=== PATIENT | female | born 1990 | race Caucasian/White ===

== ENCOUNTER 2018-02-20 20:22 | Observation (INO) ==
[2018-02-21] MEDS ORDERED: Naloxone 0.4 MG/ML INJ IVP PRN ×2 (00:32→22:33)
--- NOTE | 2018-02-21 00:32 | Internal Med History&Physical ---
Date of Encounter: 02/21/18 Time of Encounter: 00:10 Internal Medicine - H&P: HPI Chief complaint: Right obstructing ureteral stone Admitted From: Hospital to Hospital Transfer Plans for Post Hospital Care: Home History of present illness: Ms. Wolff is a 27 year old female Patient states that she was sitting on the couch at home yesterday when she began feeling a dull pain on her right side that slowly progressed in intensity. She had associated nausea and feeling warm as well. The afternoon prior to her admission she states the pain returned, then increased in intensity , had nausea and vomiting, but the pain continued and did not reduce. She had never had pain like this before. She came to the [place] ER for further evaluation. In the ER CT abdomen and pelvis showed moderate right hydronephrosis secondary to a 5 mm mid right ureteral stone. Her remaining labs were unremarkable. UA did not show infection. She has no previous history of kidney stones. Urology was called from the ER, and agreed to see the patient at [place]. She was transferred for further medical management. Upon my assessment patient states that her pain was fairly controlled, but starting to return again. She denied chest pain, nausea, vomiting, diarrhea, constipation, but did have dark urine but no dysuria. She continues to have right flank pain, with no radiation. Past Med Surg Social Fam HX - Past Medical History Medical history: no medical history Psychiatric history: no psych history - Past Surgical History Surgical History: no surgical history Additional surgical history: VAG DELIVERY: 06/26/08, 02/19/13. MISCARRIAGE 2009. REPORTS PREECLAMSIA W/FIRST - Social History Smoking Status: Never smoker Smokeless Tobacco Status: No Alcohol use: none Drug use: none - Family History Mother Family Member Ethnicity: Non- Living Status: Still Living Hx Family Cardiac Disorders: No Hx Family Respiratory Disorders: No Hx Family Cancer: No Hx Family GI Disorders: No Hx Family Endocrine Disorder: No Hx Family Neuromuscular Disorders: No Hx Family Neurologic Disorders: No Hx Family HEENT Disorders: No Hx Family Autoimmune Disorders: No Internal Medicine - H&P: Meds No Known Home Drugs 02/20/18 [History] 3 Allergy/AdvReac Type Severity Reaction Status Date / Time promethazine [From Phenergan] AdvReac Mild Muscle Pain Verified 02/20/18 17:00 All Systems PM: A 10-system review of systems was performed and is negative for pertinent findings except as documented above in the HPI. - Constitutional Vitals: Temp Pulse Resp BP Pulse Ox 98.1 F 75 14 142/87 99 02/20/18 23:48 02/20/18 23:48 02/20/18 23:48 02/20/18 23:48 02/20/18 23:48 General appearance: Present: cooperative, mild distress, A&O X 3, pleasant, answers questions appropriately Exam: As above - Head Head exam: Present: normal inspection - Eye Eye exam: Present: EOMI, normal appearance - Neck Neck exam general surgery: Present: full ROM - Respiratory Respiratory exam: Present: CTAB. Absent: chest wall tenderness, decreased breath sounds, respiratory distress, wheezes - Cardiovascular Cardiovascular exam: Present: RRR. Absent: diastolic murmur, systolic murmur - GI/Abdominal GI/Abdominal exam: Present: normal bowel sounds. Absent: guarding, soft, tenderness - Extremities Exam Extremities exam: Present: warm, radial pulses palpable and symmetrical. Absent : calf tenderness, pedal edema, tenderness - Back Exam Back exam: Present: CVA tenderness (R). Absent: CVA tenderness (L), paraspinal tenderness Additional comments: Right flank pain - Neurological Exam Neurological exam: Present: no focal deficits, strengths equal and symetr throughout. Absent: motor sensory deficit, facial droop, speech deficit - Skin Skin exam: Present: dry, normal color, warm Internal Med - H&P Results - Labs CBC & Chem 7: 02/21/18 04:40 - Assessment and plan (1) Right ureteral stone Current Visit: Yes Status: Acute Assessment and plan: As evidenced by CT abdomen and pelvis. Urology consult in the morning Flomax Pain control with SL oxycodone IV fluids Continue to monitor. (2) Hydronephrosis, right Current Visit: Yes Status: Acute Assessment and plan: Secondary to 5mm stone Treatment as above. (3) Right flank pain Current Visit: Yes Status: Acute Assessment and plan: Secondary to 5mm stone as above SL oxycodone and phenergan as needed. (4) Hematuria Current Visit: Yes Status: Acute Assessment and plan: Likely secondary to ureteral stone as above Follow up repeat UA to ensure resolution Qualifiers: Qualified Code(s): R31.9 - Hematuria, unspecified (5) DVT prophylaxis Current Visit: Yes Status: Acute Assessment and plan: SCDs - Time Spent With Patient Total time spent is greater than 50% in coordination of care (as documented) at patient's floor/unit and/or counseling patient: Greater than 35 minutes
[2018-02-21] MEDS: OXYCODONE Oral CONC 10 MG/0.5 ML ORAL.SYG SL PRN ×2 (00:51→05:09)
[2018-02-21] MEDS: 0.9 % Sodium Chloride 1,000 ML IVC SCH ×2 (00:59→08:43)
[2018-02-21 05:20] LABS: Hematocrit 43.7 % (35.3-44.9); Hemoglobin 14.2 g/dL (11.5-15.4); Mean Corpuscular HGB Conc 32.5 g/dL (31.6-35.5); Mean Corpuscular Hemoglobin 30.1 pg (28.0-33.3); Mean Corpuscular Volume 92.8 fL (83.0-100.0); Mean Platelet Volume 12.2 fL (9.4-12.4); Platelet Count 264 K/mcL (140-400); Red Blood Count 4.71 M/mcL (3.82-4.97); Red Cell Distribution Width 13.2 % (11.5-14.5)
[2018-02-21 05:41] LABS: BUN/Creatinine Ratio 15 (6-26); Blood Urea Nitrogen 9 mg/dL (6-20); Calcium 8.6 mg/dL (8.6-10.3); Carbon Dioxide 19 mEq/L (23-29); Chloride 107 mEq/L (98-107); Glucose 95 mg/dL (70-105); Osmolality,Calculated 282 (280-300); Potassium 3.5 mEq/L (3.5-5.1); Sodium 137 mEq/L (136-145); eGFR For Non-African Americans > 60 (> 60)
[2018-02-21] MEDS ORDERED: *HR* OxyCODONE Immed Rel 5 MG TABLET PO PRN ×2 (07:11→20:54)
[2018-02-21] MEDS: Ketorolac 30 MG/ML VIAL IVP PRN ×2 (08:44→15:33)
--- NOTE | 2018-02-21 09:31 | Urology - Consult Note ---
Date of Encounter: 02/21/18 Time of Encounter: 09:15 - Assessment and Plan (1) Right ureteral stone Current Visit: Yes Status: Acute Assessment and plan: Patient is a 27 year old female who presents with a right 5mm mid ureteral stone with moderate right hydronephrosis. Pain control has been difficult to achieve, but patient is currently resting comfortably in no apparent distress. Reviewed CT findings with patient. Discussed surgical risks and benefits. Patient verbalizes understanding and is prepared to undergo a right ureteroscopic stone extraction with holmium laser lithotripsy and ureteral stent placement. Urology CN:HPI Consult date: 02/21/18 Reason for consult Urology: Hydronephrosis (mid right ureteral stone) History of present illness: Patient is a 27 year old female who presents to the emergency department with right flank pain and hematuria. Patient states pain began two days ago and was colicky and intermittent. Patient states in last 24 hours, pain acutely worsened and was accompanied with chills, nausea and diaphoresis. Patient has no known history of renal stones. Patient denies family history of renal stones. Patient has undergone CT scan abdomen and pelvis. Past Med Surg Social Fam HX - Past Medical History Medical history: no medical history Psychiatric history: no psych history - Past Surgical History Surgical History: no surgical history Additional surgical history: VAG DELIVERY: 06/26/08, 02/19/13. MISCARRIAGE 2009. REPORTS PREECLAMSIA W/FIRST - Social History Smoking Status: Never smoker Smokeless Tobacco Status: No Alcohol use: none Drug use: none - Family History Mother Family Member Ethnicity: Non- Living Status: Still Living Hx Family Cardiac Disorders: No Hx Family Respiratory Disorders: No Hx Family Cancer: No Hx Family GI Disorders: No Hx Family Endocrine Disorder: No Hx Family Neuromuscular Disorders: No Hx Family Neurologic Disorders: No Hx Family HEENT Disorders: No Hx Family Autoimmune Disorders: No Medications and Allergies 3 Allergy/AdvReac Type Severity Reaction Status Date / Time promethazine [From Phenergan] AdvReac Mild Muscle Pain Verified 02/20/18 17:00 Review of Systems - Constitutional chills, fatigue, no fever(s) - EENT Nose, mouth and throat: no dizziness, no headache(s) - Cardiovascular diaphoresis, no chest pain, no dyspnea - Respiratory no cough, no dyspnea - Gastrointestinal abdominal pain, nausea, no vomiting - Genitourinary Genitourinary: hematuria, no difficulty urinating, no dysuria, no urinary frequency, no urinary hesitancy, no urinary urgency - Musculoskeletal back pain, no muscle weakness - Integumentary no erythema, no rash, no swelling - Neurological no confusion, no syncope - Psychiatric no anxiety, no confusion Exam Initial Vital Signs Temp Pulse Resp BP Pulse Ox 98.1 F 75 14 142/87 99 02/20/18 23:48 02/20/18 23:48 02/20/18 23:48 02/20/18 23:48 02/20/18 23:48 - General physical appearance Present: well developed, well nourished, no distress, moderate pain - Eyes Present: PERRL, normal ocular movement - ENT Present: normal nares, no hearing loss, no congestion - Neck Present: no masses, trachea midline - Respiratory Present: normal respiratory effort - Cardiovascular Cardiovascular exam IM: RRR - Abdomen Abdomen: Present: soft, tender (right CVAT) - Integumentary Present: no rash, no growths, no abnormal pigmentation - Neurologic Present: normal coordination Urology Results - Labs 02/21/18 04:40 02/21/18 04:40 Abnormal lab results WBC 14.6 K/mcL (4.3-11.1) H 02/21/18 04:40 Carbon Dioxide 19 mEq/L (23-29) L 02/21/18 04:40 POC Glucose 106 mg/dL (70-99) H 02/21/18 05:54 Diabetes panel 02/21/18 Range/Units 04:40 Sodium 137 (136-145) mEq/L Potassium 3.5 (3.5-5.1) mEq/L Chloride 107 (98-107) mEq/L Carbon Dioxide 19 L (23-29) mEq/L BUN 9 (6-20) mg/dL Creatinine 0.61 (0.60-1.20) mg/dL Glucose 95 (70-105) mg/dL Calcium 8.6 (8.6-10.3) mg/dL Calcium panel 02/21/18 Range/Units 04:40 Calcium 8.6 (8.6-10.3) mg/dL Pituitary panel 02/21/18 Range/Units 04:40 Sodium 137 (136-145) mEq/L Potassium 3.5 (3.5-5.1) mEq/L Chloride 107 (98-107) mEq/L Carbon Dioxide 19 L (23-29) mEq/L BUN 9 (6-20) mg/dL Creatinine 0.61 (0.60-1.20) mg/dL Glucose 95 (70-105) mg/dL Calcium 8.6 (8.6-10.3) mg/dL Adrenal panel 02/21/18 Range/Units 04:40 Sodium 137 (136-145) mEq/L Potassium 3.5 (3.5-5.1) mEq/L Chloride 107 (98-107) mEq/L Carbon Dioxide 19 L (23-29) mEq/L BUN 9 (6-20) mg/dL Creatinine 0.61 (0.60-1.20) mg/dL Glucose 95 (70-105) mg/dL Calcium 8.6 (8.6-10.3) mg/dL All other labs normal. - Imaging CT scan - abdomen: report reviewed, image reviewed CT scan - pelvis: report reviewed, image reviewed Consult Discharge Plan - Plan Referrals: Luz Pan, SURGICAL ASST [Primary Care Provider] -
[2018-02-21] MEDS ORDERED: CeFAZolin Syr 2,000MG/20 ML 2,000 MG/20 ML SYRINGE IVPB ONE ×2 (09:39→17:00)
--- NOTE | 2018-02-21 12:00 | Event Note ---
Date of Encounter: 02/21/18 Time of Encounter: 10:10 27-year-old female is admitted for right ureteral stone associated with ipsilateral hydronephrosis. IVF, analgesics. Plan for OR later today for ureteroscopy, laser lithotripsy, and stent placement. Potential discharge in AM after procedure.
[2018-02-21] MEDS: Ringers Solution, Lactated 1,000 ML IVC SCH (17:52)
--- NOTE | 2018-02-21 19:31 | Anesthesia Evaluation PreOp ---
Date of Encounter: 02/21/18 Time of Encounter: 19:29 - Past History Planned Operation: Right ureteroscopy, laser lithotripsy, stent Cardiac History: Denies any Significant Hx Pulmonary History: Denies Any Significant HX [facility] History: Denies Any Significant HX Other Medical History: Renal (stone) Anesthesia History: No Prior Anesthetic Complications, Past Anesthesia (wisdom tooth extraction) Test: Negative (02/20/18) Alcohol Use: none Drug use: none Medications and Allergies l-Norgest/E.estradiol-E.estrad [Seasonique 0.15-0.03-0.01 Tab] 1 tab PO DAILY [History] 3 Allergy/AdvReac Type Severity Reaction Status Date / Time promethazine [From Phenergan] AdvReac Mild Muscle Pain Verified 02/20/18 17:00 - Meds/Allergy Pre-op Review Medications Reviewed: Yes Allergies Reviewed: Yes Beta Blockers on Current Med List: No Anesthesia Results - Labs 02/21/18 04:40 02/21/18 04:40 Laboratory Tests 02/20/18 17:15 Serum , Qual Negative Anesthesia Exam Vital Signs/O2 Sat, Most Current Temp Pulse Resp BP Pulse Ox 98.1 F 83 14 137/80 100 02/21/18 19:15 02/21/18 19:15 02/21/18 19:15 02/21/18 19:15 02/21/18 19:15 Weight: 64kg NPO (# of Hours): >8 - HEENT Pupil (Motor): Pupils equal, EOMI Mallampati: II Teeth: Normal Oral Opening: Greater than 3 - [facility] LOC: Oriented [facility] Motor: Normal RUE, Normal LUE, Normal RLE, Normal LLE, Normal Face [facility] Sensory: Normal: RUE, LUE, RLE, LLE, Face - Cardiac Rhythm: Regular - Pulmonary Breath Sounds: bilateral Clear Respiratory Effort: Symmetrical Anesthesia Assess/Plan ASA Score: 1 Modified [place] Scale for Level of Consciousness: Cooperative, oriented, and tranquil Anesthetic Plan: General Monitoring Plan: Standard Monitors Recovery Plan: PACU
[2018-02-21] MEDS ORDERED: Lidocaine -MPF 2% 2 ML VIAL ONE (19:37)
[2018-02-21] MEDS ORDERED: *HR* Propofol 200 MG/20 ML VIAL IVP ONE (19:37)
[2018-02-21] MEDS ORDERED: *HR* FentaNYL (PF) 100 MCG/2 ML VIAL ONE (20:43)
[2018-02-21] MEDS ORDERED: *HR* FentaNYL (PF) 100 MCG/2 ML VIAL IVP PRN (20:54)
[2018-02-21] MEDS ORDERED: *HR* Meperidine 25 MG/ML SYRINGE IVP PRN (20:54)
[2018-02-21] MEDS ORDERED: Ondansetron 4 MG/2 ML VIAL IVP ONE (20:54)
[2018-02-21] MEDS ORDERED: Ringers Solution, Lactated 1,000 ML IVC SCH ×2 (21:00→22:33)
[2018-02-21] MEDS ORDERED: Ondansetron 4 MG/2 ML VIAL ONE (21:17)
[2018-02-21] MEDS ORDERED: Dexamethasone 4 MG/ML VIAL ONE (21:17)
--- NOTE | 2018-02-21 21:42 | Operative Note ---
Date of procedure: 02/21/18 Pre-op diagnosis: Right ureteral stone Post-op diagnosis: same Procedure: Right ureteroscopy, laser lithotripsy, basket stone extraction, and stent placement. Implants: 6-Ghanaian by 24 cm double-J stent Complications: None Anesthesia: NILESHA Surgeon: Johnathan Brice Was there an clerical administrative assistant present: No Estimated blood loss (cc): 0 Specimen: none Condition: stable Disposition: PACU Procedure in Detail: Indications: Soledad is a 27-year-old female who presents with right flank pain. A CT scan showed a distal right ureteral stone. She failed outpatient managementand elected to have the stone removed. She elected to undergo a right ureteroscopy, laser lithotripsy, and stent placement. She was aware of the risks of the procedure including but not limited to bleeding, infection, injury to other structures, need for further procedures, need for stent, stent irritation, incomplete treatment, and the risk of anesthesia. She is willing to proceed. Procedure: After informed consent was obtained the patient was brought back to the operating room and placed in supine position. A time out was performed. General anesthesia was administered and an LMA was placed. She was then placed in the lithotomy position. She was prepped and draped in the usual sterile fashion. Cystoscopy was performed. The anterior urethra was normal. There was no evidence of bladder tumors. The ureteral orifices were in the normal orthotopic position. There was no duplication of the ureteral orifices. The Zip wire was placed in the right ureteral orifice, and it was brought into the kidney under fluoroscopic guidance. The ureter was gently dilated with the 8/10-Ghanaian vessel dilator. I then advanced the semirigid ureteroscope into the ureter. I grasped the stone with the basket and attempted to remove it, but it did not pass. The stone was fragmented using the 200 micron fiber. The stone fragments were then basket extracted. A 6 [place] by 24cm JJ stent was then placed with good curl seen in the kidney and the bladder. The dangle string was left intact and tucked into the vagina for removal at a later date. The patient was then awakened from general anesthesia and brought to recovery room in good condition. All sponge, needle, and instrument counts were correct
--- NOTE | 2018-02-21 22:18 | Anesthesia Evaluation Post Op ---
Date of Encounter: 02/21/18 Time of Encounter: 22:16 - Vital Signs Vital Signs: Vital Signs/O2 Sat, Most Current Temp Pulse Resp BP Pulse Ox 97.9 F 74 16 112/62 99 02/21/18 21:45 02/21/18 22:05 02/21/18 22:05 02/21/18 22:05 02/21/18 22:05 - Lungs Lungs: Clear Ascult./Percussion - Airway Airway: Non-obstructed - Cardiovascular Regular Rate - Mental Status Mental Status: Alert & Oriented, Answers Appropriately - Pain Pain Scale: 0 Pain Scale used: Numeric (1 - 10) - Nausea Vomiting Nausea Vomiting: Not Present - Hydration Hydration: NPO - Discharge PostOp Status: Transfer Patient to floor
[2018-02-21] MEDS ORDERED: OXYCODONE Oral CONC 10 MG/0.5 ML ORAL.SYG SL PRN (22:33)
[2018-02-21] MEDS ORDERED: *HR* OxyCODONE/APAP 5/325 TABLET PO PRN (22:33)
[2018-02-22] MEDS: Ringers Solution, Lactated 1,000 ML IVC SCH (00:21)
[2018-02-22] MEDS: Ketorolac 30 MG/ML VIAL IVP PRN ×2 (01:03→06:45)
[2018-02-22 05:25] LABS: Basophils % 0.1 %; Hematocrit 39.3 % (35.3-44.9); Hemoglobin 13.3 g/dL (11.5-15.4); Immature Granulocytes % 0.5 % (0-4); Lymphocytes # 1.1 K/mcL (0.6-4.6); Lymphocytes % 12.8 %; Mean Corpuscular HGB Conc 33.8 g/dL (31.6-35.5); Mean Corpuscular Hemoglobin 30.7 pg (28.0-33.3); Mean Corpuscular Volume 90.8 fL (83.0-100.0); Mean Platelet Volume 12.1 fL (9.4-12.4); Monocytes # 0.2 K/mcL (0.0-1.3); Monocytes % 1.9 %; Platelet Count 260 K/mcL (140-400); Red Blood Count 4.33 M/mcL (3.82-4.97); Red Cell Distribution Width 13.1 % (11.5-14.5); Segmented Neutrophils % 84.7 %
[2018-02-22 05:44] LABS: BUN/Creatinine Ratio 11 (6-26); Blood Urea Nitrogen 7 mg/dL (6-20); Calcium 8.8 mg/dL (8.6-10.3); Carbon Dioxide 18 mEq/L (23-29); Chloride 109 mEq/L (98-107); Glucose 128 mg/dL (70-105); Osmolality,Calculated 282 (280-300); Potassium 3.8 mEq/L (3.5-5.1); Sodium 136 mEq/L (136-145); eGFR For Non-African Americans > 60 (> 60)
--- NOTE | 2018-02-22 09:15 | Urology Progress Note ---
Date of Encounter: 02/22/18 Time of Encounter: 09:12 - Assessment and Plan (1) Right ureteral stone Current Visit: Yes Status: Acute Assessment and plan: Patient is a 27 year old female who is 1 day status post right ureteroscopy, laser lithotripsy, basket stone extraction, and stent placement. Patient's vital signs are stable and afebrile. Discussed home activities and follow up. Patient will self remove stent 5 days postoperative. Progress Note Subjective: no new complaints, feels better Narrative: POD #1. Patient seen and examined sitting upright in bed eating breakfast. Patient tolerating normal diet. Voiding without difficulty. Pain is well controlled. No new concerns. Objective Initial Vital Signs Temp Pulse Resp BP Pulse Ox 98.1 F 75 14 142/87 99 02/20/18 23:48 02/20/18 23:48 02/20/18 23:48 02/20/18 23:48 02/20/18 23:48 - General physical appearance Present: well developed, no distress, no pain - Respiratory Present: normal expansion, normal respiratory effort - Abdomen Present: soft, non tender - Integumentary Present: no rash, no abnormal pigmentation - Musculoskeletal Present: normal posture - Psychiatric Present: oriented to time, oriented to person, oriented to place, speech is normal, memory intact - Labs 02/22/18 04:52 02/22/18 04:52 Diabetes panel 02/22/18 Range/Units 04:52 Sodium 136 (136-145) mEq/L Potassium 3.8 (3.5-5.1) mEq/L Chloride 109 H (98-107) mEq/L Carbon Dioxide 18 L (23-29) mEq/L BUN 7 (6-20) mg/dL Creatinine 0.66 (0.60-1.20) mg/dL Glucose 128 H (70-105) mg/dL Calcium 8.8 (8.6-10.3) mg/dL Calcium panel 02/22/18 Range/Units 04:52 Calcium 8.8 (8.6-10.3) mg/dL Pituitary panel 02/22/18 Range/Units 04:52 Sodium 136 (136-145) mEq/L Potassium 3.8 (3.5-5.1) mEq/L Chloride 109 H (98-107) mEq/L Carbon Dioxide 18 L (23-29) mEq/L BUN 7 (6-20) mg/dL Creatinine 0.66 (0.60-1.20) mg/dL Glucose 128 H (70-105) mg/dL Calcium 8.8 (8.6-10.3) mg/dL Adrenal panel 02/22/18 Range/Units 04:52 Sodium 136 (136-145) mEq/L Potassium 3.8 (3.5-5.1) mEq/L Chloride 109 H (98-107) mEq/L Carbon Dioxide 18 L (23-29) mEq/L BUN 7 (6-20) mg/dL Creatinine 0.66 (0.60-1.20) mg/dL Glucose 128 H (70-105) mg/dL Calcium 8.8 (8.6-10.3) mg/dL Consult Discharge Plan - Plan Referrals: Luz Pan CNP [Primary Care Provider] - Johnathan Brice MD [Partnered Physician] -
--- NOTE | 2018-02-22 10:00 | Discharge Summary ---
- NOTES TO OUTPATIENT PROVIDER Notes to Outpatient Provider: Patient was admitted for right ureteric stone complicated by hydronephrosis. Underwent laser lithotripsy, stone extraction, and stent placement on 02/21 uneventfully. No evidence of UTI. Stent to be removed on POD#5 and follow up with urology as outpatient. Orders not resulted at time of discharge: Pending orders 02/21/18 21:10 XR KUB [XR] Routine Date of Encounter: 02/22/18 Time of Encounter: 08:30 - Discharge Diagnosis (1) Hydronephrosis, right Priority: Secondary Status: Acute (2) Right ureteral stone Priority: Primary Status: Acute Hospital course: Ms. Wolff is a 27 year old female with no significant past medical history was admitted for right ureteric stone complicated by hydronephrosis. Underwent laser lithotripsy, stone extraction, and stent placement on 02/21 uneventfully. No evidence of UTI. Stent to be removed on POD#5 and follow up with urology as outpatient. Discharge discussed with: patient - Time Spent with Patient Total time spent providing and/or coordinating discharge services: Greater than 30 minutes - Discharge Medications Prescriptions: Acetaminophen w/Cod 300-30 mg [Tylenol w/Codeine #3] 1 each PO Q8HR 4 Days #12 tablet Home Medications: l-Norgest/E.estradiol-E.estrad [Seasonique 0.15-0.03-0.01 Tab] 1 tab PO DAILY [History] Acetaminophen w/Cod 300-30 mg [Tylenol w/Codeine #3] 1 each PO Q8HR 4 Days #12 tablet 02/22/18 [Rx] Allergies/Adverse Reactions: 3 Allergy/AdvReac Type Severity Reaction Status Date / Time promethazine [From Phenergan] AdvReac Mild Muscle Pain Verified 02/20/18 17:00 Date of admission: 02/20/18 22:22 Primary care physician: Luz Pan CNP - Constitutional Vitals: Temp Pulse Resp BP Pulse Ox 98.7 F 57 16 127/73 99 02/22/18 07:21 02/22/18 07:21 02/22/18 07:21 02/22/18 07:21 02/22/18 07:21 General appearance: Present: cooperative, mild distress, A&O X 3, pleasant, answers questions appropriately Exam: General: Alert and oriented, not in acute distress. Cardiovascular:Normal S1 & S2, No JVD. Pulse regular. Lungs: clear to auscultation, no wheezes/rales Abdomen:Soft, non-tender, no rigidity. : Minimal R CVA tenderness Neurological:Normal cognition and motor skills. Non-focal - Patient Status Disposition: Home, Self-Care Condition: Good Functional capacity at discharge: independent ambulation Overall status at discharge: patient is progressing back to baseline - Discharge Instructions Follow Up With: Luz Pan CNP [Primary Care Provider] - Johnathan Brice MD [Partnered Physician] - - Diet and Activity Activity: resume usual activities as tolerated Diet: regular diet
[2018-02-22 10:53] VITALS: BP 144/72
== END 2018-02-22 12:43 | disposition home or self-care (01) ==
LOC: 3ANU → SUATTDRO 22:22
PROVIDERS: ADMIT Family Medicine; ATTEND Internal Medicine

== ENCOUNTER 2018-02-25 20:52 | Observation (INO) ==
[2018-02-26] MEDS ORDERED: *HR* HYDROcodone/Acet 10/325 mg TABLET PO PRN (03:08)
[2018-02-26] MEDS ORDERED: Ringers Solution, Lactated 1,000 ML IVC SCH (03:15)
[2018-02-26] MEDS ORDERED: Methocarbamol 500 MG TABLET PO STA (03:15)
--- NOTE | 2018-02-26 03:18 | Internal Med History&Physical ---
Date of Encounter: 02/26/18 Time of Encounter: 03:15 Internal Medicine - H&P: HPI Chief complaint: Right flank pain Admitted From: Home Plans for Post Hospital Care: Home History of present illness: Soledad Wolff is a 27 year old woman with no prior medical history who was admitted here on 02/21 with the complaint of right flank pain of acute onset accompanied by nausea and vomiting, diagnosed with a 5mm right ureteral stone with concomitant moderate hydronephrosis. She underwent right ureteroscopy, laser lithotripsy, basket stone extraction, and stent placement the same day with a dangle string left and tucked into the vagina for removal at a later date. She was discharged on 02/22 with the recommendation to remove the stent on POD#5. She presents again on transfer from [place] stating that she took the stent out today at 10am and around 2.30pm started having right flank pain again accompanied by nausea and vomiting. The pain progressed and she continued to feel miserable also feeling episodes of hot and cold with chills, feeling significantly uncomfortable. She did not notice any blood in his urine since removal of the stents. In the ER she was afebrile but tachycardic to the 120s and hypertensive. Another CT scan was done which showed a decrease in the degree of hydroureteronephrosis in comparison to previous and no free air in the peritoneum. UA obtained showed large blood but negative nitrite and trace leukocyte esterase but only 3-5 white cells. Given the severity of her pain and symptoms she was given ketorolac with the new finding of a white blood cell count of 16 was started on ceftriaxone and transferred here for further evaluation. On my assessment she states that the pain has been exquisite and ongoing ever since 2 PM and not responsive to Tylenol with codeine or oxycodone. She says the pain is even more than her initial presentation a few days ago with the first kidney stone and she is unable to obtain a comfortable position. She has had some chills but says ever since receiving pain medication and it has improved. She denies noticing blood in her urine ever since the stent removal and has no dysuria. Past Med Surg Social Fam HX - Past Medical History Medical history: kidney stones Psychiatric history: no psych history - Past Surgical History Surgical History: no surgical history Additional surgical history: VAG DELIVERY: 06/26/08, 02/19/13. MISCARRIAGE 2010. REPORTS PREECLAMSIA W/FIRST - Social History Smoking Status: Never smoker Smokeless Tobacco Status: No Alcohol use: none Drug use: none - Family History Mother Family Member Ethnicity: Non- Living Status: Still Living Hx Family Cardiac Disorders: No Hx Family Respiratory Disorders: No Hx Family Cancer: No Hx Family GI Disorders: No Hx Family Endocrine Disorder: No Hx Family Neuromuscular Disorders: No Hx Family Neurologic Disorders: No Hx Family HEENT Disorders: No Hx Family Autoimmune Disorders: No Internal Medicine - H&P: Meds l-Norgest/E.estradiol-E.estrad [Seasonique 0.15-0.03-0.01 Tab] 1 tab PO DAILY [History] Acetaminophen w/Cod 300-30 mg [Tylenol w/Codeine #3] 1 each PO Q8HR 4 Days #12 tablet 02/22/18 [Rx] 3 Allergy/AdvReac Type Severity Reaction Status Date / Time promethazine [From Phenergan] AdvReac Mild Muscle Pain Verified 02/20/18 17:00 All Systems PM: A 10-system review of systems was performed and is negative for pertinent findings except as documented above in the HPI. - Constitutional Vitals: Temp Pulse Resp BP Pulse Ox 98.7 F 65 16 122/67 98 02/26/18 03:10 02/26/18 03:10 02/26/18 03:10 02/26/18 03:10 02/26/18 03:10 Exam: Vitals: Reviewed General: Well-developed but in notable discomfort with antalgic posturing due to pain Skin: Warm and supple HEENT: Moist mucous membranes. No conjunctivae pallor. Neck: No lymphadenopathy. No JVD. No carotid bruits. No palpable thyroid. Chest: Normal thoracic expansion. Normal breath sounds. Clear to auscultation. Heart: Normal S1 & S2; rhythmic. No rubs or murmurs. Abdomen: Non-distended, soft and non-tender to palpation. Exquisite right CVA tenderness elicited. Extremities: No clubbing, cyanosis or edema. No calf tenderness. Normal distal pulses. Neurological: Awake, alert and oriented to person, place and time. No focal deficits. Psych: Affect appropriate. - Assessment and plan (1) Right flank pain Current Visit: Yes Status: Acute Assessment and plan: Unclear etiology; it seems to have stemmed from the stent removal however there were no anatomic abnormality seen on CT scan. We will consult urology for reevaluation however in the interim we will place on pain control and antiemetics as needed. Was started on ceftriaxone due to mild leukocytosis and pain however it is questionable if she actually has a urinary tract infection. For now it should be okay continuing ceftriaxone due to the recent foreign body and manipulation pending full eval by urology. (2) Right ureteral stone Current Visit: Yes Status: Suspected Assessment and plan: Since to no longer be presents ever since the procedure as now seen on CT scan however with the acute symptoms presenting it is unclear if there is a retained stone. We will place on IV fluids and pain control for now. (3) Hematuria Current Visit: Yes Status: Acute Assessment and plan: No longer microscopic ever since removal of the stent as stated by the patient however still has large red blood cells noted in the urine microscopy which is not unexpected to see. Qualifiers: Hematuria type: asymptomatic microscopic Qualified Code(s): R31.21 - Asymptomatic microscopic hematuria (4) DVT prophylaxis Current Visit: Yes Status: Acute Assessment and plan: Subcutaneous heparin ordered. - Time Spent With Patient Total time spent is greater than 50% in coordination of care (as documented) at patient's floor/unit and/or counseling patient: Greater than 35 minutes
[2018-02-26] MEDS: Metoclopramide 10 MG/2 ML VIAL IVP PRN ×3 (03:44→16:12)
[2018-02-26] MEDS: Ketorolac 30 MG/ML VIAL IVP PRN ×3 (03:46→16:12)
[2018-02-26] MEDS: *HR* Heparin 5,000 UNIT/ML VIAL SQ SCH ×3 (05:16→20:50)
[2018-02-26 07:23] LABS: Basophils % 0.1 %; Eosinophils # 0.1 K/mcL (0.0-0.6); Eosinophils % 0.4 %; Hematocrit 35.6 % (35.3-44.9); Immature Granulocytes % 0.5 % (0-4); Lymphocytes # 1.8 K/mcL (0.6-4.6); Lymphocytes % 12.4 %; Mean Corpuscular HGB Conc 33.7 g/dL (31.6-35.5); Mean Corpuscular Hemoglobin 30.5 pg (28.0-33.3); Mean Corpuscular Volume 90.4 fL (83.0-100.0); Mean Platelet Volume 11.7 fL (9.4-12.4); Monocytes # 0.8 K/mcL (0.0-1.3); Monocytes % 5.8 %; Neutrophils # 11.4 K/mcL (1.6-8.9); Platelet Count 254 K/mcL (140-400); Red Blood Count 3.94 M/mcL (3.82-4.97); Red Cell Distribution Width 12.9 % (11.5-14.5); Segmented Neutrophils % 80.8 %
[2018-02-26 07:47] LABS: BUN/Creatinine Ratio 18 (6-26); Blood Urea Nitrogen 10 mg/dL (6-20); Calcium 8.7 mg/dL (8.6-10.3); Carbon Dioxide 23 mEq/L (23-29); Chloride 105 mEq/L (98-107); Glucose 99 mg/dL (70-105); Osmolality,Calculated 283 (280-300); Potassium 3.3 mEq/L (3.5-5.1); Sodium 137 mEq/L (136-145); eGFR For Non-African Americans > 60 (> 60)
--- NOTE | 2018-02-26 08:31 | Urology - Consult Note ---
Date of Encounter: 02/26/18 Time of Encounter: 07:35 - Assessment and Plan (1) Flank pain Current Visit: No Status: Acute Assessment and plan: Patient is a 27 year old female who presents 5 days status post right ureteroscopy, laser lithotripsy, basket stone extraction, and stent placement with right flank pain, nausea and vomiting after stent removal. At this time, we will continue with supportive care. Discussed outpatient repeat imaging of renal ultrasound to evaluate for resolution of hydronephrosis in 3-4 weeks, Urology CN:HPI Consult date: 02/26/18 History of present illness: Patient is a 27 year old female who presents 5 days postoperative from a right ureteroscopy, laser lithotripsy, basket stone extraction, and stent placement with Dr. Brice. Patient self removed ureteral stent yesterday morning and subsequently experienced right flank pain, nausea and vomiting. Patient was transferred from [facility] to [facility] for further evaluation. On initial presentation , patient was documented as tachycardic with an elevated WBC count to 16.1. CT reveals improving right hydronephrosis. Patient is currently receiving IV Rocephin and vital signs are stable and afebrile. Patient denies dysuria, hematuria, fever. Past Med Surg Social Fam HX - Past Medical History Medical history: kidney stones Psychiatric history: no psych history - Past Surgical History Surgical History: no surgical history Additional surgical history: VAG DELIVERY: 06/26/08, 02/19/13. MISCARRIAGE 2009. REPORTS PREECLAMSIA W/FIRST - Social History Smoking Status: Never smoker Smokeless Tobacco Status: No Alcohol use: none Drug use: none - Family History Mother Family Member Ethnicity: Non- Living Status: Still Living Hx Family Cardiac Disorders: No Hx Family Respiratory Disorders: No Hx Family Cancer: No Hx Family GI Disorders: No Hx Family Endocrine Disorder: No Hx Family Neuromuscular Disorders: No Hx Family Neurologic Disorders: No Hx Family HEENT Disorders: No Hx Family Autoimmune Disorders: No Medications and Allergies l-Norgest/E.estradiol-E.estrad [Seasonique 0.15-0.03-0.01 Tab] 1 tab PO DAILY [History] Acetaminophen w/Cod 300-30 mg [Tylenol w/Codeine #3] 1 each PO Q8HR 4 Days #12 tablet 02/22/18 [Rx] 3 Allergy/AdvReac Type Severity Reaction Status Date / Time promethazine [From Phenergan] AdvReac Mild Muscle Pain Verified 02/20/18 17:00 Review of Systems - Constitutional chills, fatigue, no fever(s) - EENT Nose, mouth and throat: no dizziness, no headache(s) - Cardiovascular no chest pain, no diaphoresis, no dyspnea - Respiratory no cough, no dyspnea - Gastrointestinal nausea, vomiting, no abdominal pain, no change in bowel habits - Genitourinary Genitourinary: flank pain, no difficulty urinating, no dysuria, no urinary frequency, no urinary hesitancy, no urinary incontinence, no urinary urgency - Musculoskeletal back pain, no muscle weakness - Integumentary no erythema, no rash, no swelling - Neurological no confusion, no syncope - Psychiatric no anxiety, no confusion - Hematologic/Lymphatic no easy bleeding, no easy bruising - Allergic/Immunologic no throat swelling, no wheezing Exam Initial Vital Signs Temp Pulse Resp BP Pulse Ox 98.7 F 65 16 122/67 98 02/26/18 03:10 02/26/18 03:10 02/26/18 03:10 02/26/18 03:10 02/26/18 03:10 - General physical appearance Present: well developed, well nourished, no distress, moderate pain - Eyes Present: PERRL, normal ocular movement - ENT Present: normal nares, no hearing loss, no congestion - Neck Present: no masses, trachea midline - Respiratory Present: normal respiratory effort - Cardiovascular Cardiovascular exam IM: RRR - Abdomen Abdomen: Present: soft, tender (right CVAT) - Integumentary Present: no rash - Neurologic Present: normal coordination - Musculoskeletal Present: normal gait Urology Results - Labs 02/26/18 06:56 02/26/18 06:56 Abnormal lab results WBC 14.1 K/mcL (4.3-11.1) H 02/26/18 06:56 Neutrophils # 11.4 K/mcL (1.6-8.9) H 02/26/18 06:56 Potassium 3.3 mEq/L (3.5-5.1) L 02/26/18 06:56 Creatinine 0.57 mg/dL (0.60-1.20) L 02/26/18 06:56 Diabetes panel 02/26/18 Range/Units 06:56 Sodium 137 (136-145) mEq/L Potassium 3.3 L (3.5-5.1) mEq/L Chloride 105 (98-107) mEq/L Carbon Dioxide 23 (23-29) mEq/L BUN 10 (6-20) mg/dL Creatinine 0.57 L (0.60-1.20) mg/dL Glucose 99 (70-105) mg/dL Calcium 8.7 (8.6-10.3) mg/dL Calcium panel 02/26/18 Range/Units 06:56 Calcium 8.7 (8.6-10.3) mg/dL Pituitary panel 02/26/18 Range/Units 06:56 Sodium 137 (136-145) mEq/L Potassium 3.3 L (3.5-5.1) mEq/L Chloride 105 (98-107) mEq/L Carbon Dioxide 23 (23-29) mEq/L BUN 10 (6-20) mg/dL Creatinine 0.57 L (0.60-1.20) mg/dL Glucose 99 (70-105) mg/dL Calcium 8.7 (8.6-10.3) mg/dL Adrenal panel 02/26/18 Range/Units 06:56 Sodium 137 (136-145) mEq/L Potassium 3.3 L (3.5-5.1) mEq/L Chloride 105 (98-107) mEq/L Carbon Dioxide 23 (23-29) mEq/L BUN 10 (6-20) mg/dL Creatinine 0.57 L (0.60-1.20) mg/dL Glucose 99 (70-105) mg/dL Calcium 8.7 (8.6-10.3) mg/dL All other labs normal. - Imaging CT scan - abdomen: report reviewed, image reviewed CT scan - pelvis: report reviewed, image reviewed Consult Discharge Plan - Plan Referrals: NONE,PCP [Primary Care Provider] -
[2018-02-26] MEDS: cefTRIAXone 1,000 MG in 0.9 % Sodium Chloride Mini Bag 100 ML IVPB SCH (08:38)
[2018-02-26] MEDS ORDERED: Ondansetron 4 MG/2 ML VIAL IVP PRN (08:57)
--- NOTE | 2018-02-26 14:36 | Internal Med Progress Note ---
Hospitalist Progress Note - Encounter Date of Encounter: 02/26/18 Time of Encounter: 09:50 - Subjective Interval History: Pt was seen and assessed at bedside at 0950. She was sitting up in bed appearing to be rather nauseated. Pt has requested po phenergan althought it is listed as an allergy. She states that she cannot have IV phenergan. She states that her pain is fairly well controlled. Denies chest pain, SOB, vomiting, diarrhea, or peripheral edema. - Exam Vitals: Temp Pulse Resp BP Pulse Ox 98.3 F 77 16 114/65 98 02/26/18 11:33 02/26/18 11:33 02/26/18 11:33 02/26/18 11:33 02/26/18 11:33 Exam: General: Pt resting quietly on bed, no distress. Skin: pwd, no rashes, lesions, redness Neurological: Pt is alert and awake, oriented x 3, Speech is clear, PERRLA, EOMI , no nystagmus, no pronator drift. strength equal x 4 extremities HEENT: mucous mumbranes moist, no conjuctival pallor Neck: supple, no tracheal deviation, no lymphadenopathy, tenderness, no thyromegaly Heart: S1S2 heard without gallops, clicks, murmurs, no bradycardia or tachycardia, pt has no peripheral edema, pedal and radial pulses palpable bilaterally. Lungs: clear throughout without wheezing, rales, or ronchi, respirations are unlabored Abdomen: soft and non tender with bowel sound present, no hepatomegaly. Psych: Normal affect with good eye contact - Assessment and Plan (1) Right ureteral stone Current Visit: Yes Status: Suspected Assessment and Plan: Patient with recent is right ureteral stone with associated hydronephrosis. She is status post ureteroscopically, laser lithotripsy, basket stone extraction , and stent placement. Patient removed the stent at home on 02/25. Patient reports normal long after she began having right flank pain with nausea and vomiting that progressively became worse until she presented to outlying emergency department. CT shows residual hydronephrosis She has been evaluated by urology, we appreciate the recommendations. Urology is following. Okay to continue ketorolac, control of nausea. Continue IV fluids, pain management, antiemetics. (2) Right flank pain Current Visit: Yes Status: Acute Assessment and Plan: Plan as above. (3) Hematuria Current Visit: Yes Status: Acute Assessment and Plan: Patient with large amount of blood in UA that was collected at outside facility. Trace of leukocyte esterase, 5-15 red cells. This is normal in the setting of stent placement and ureteral stones. (4) DVT prophylaxis Current Visit: Yes Status: Acute Assessment and Plan: Heparin subcutaneous. - Time Spent with Patient Total time spent is greater than 50% in coordination of care (as documented) at patient's floor/unit and/or counseling patient: less than 15 minutes Plan of Care Discussed with: patient Internal Medicine: Result - Labs CBC & Chem 7: 02/26/18 06:56 02/26/18 06:56 Labs: Short CBC 02/26/18 Range/Units 06:56 WBC 14.1 H (4.3-11.1) K/mcL Hgb 12.0 D (11.5-15.4) g/dL Hct 35.6 (35.3-44.9) % Plt Count 254 (140-400) K/mcL Neutrophils # 11.4 H (1.6-8.9) K/mcL BMP 02/26/18 06:56 Sodium 137 Potassium 3.3 L Chloride 105 Carbon Dioxide 23 BUN 10 Creatinine 0.57 L Glucose 99 Calcium 8.7 Consult Discharge Plan - Plan Referrals: NONE,PCP [Primary Care Provider] - (3) Hematuria Qualifiers: Hematuria type: asymptomatic microscopic Qualified Code(s): R31.21 - Asymptomatic microscopic hematuria
[2018-02-27] MEDS: *HR* Heparin 5,000 UNIT/ML VIAL SQ SCH ×3 (05:45→21:28)
[2018-02-27] MEDS ORDERED: Bisacodyl 10 MG RECTAL SUPPOSITORY RC PRN (07:13)
[2018-02-27] MEDS: cefTRIAXone 1,000 MG in 0.9 % Sodium Chloride Mini Bag 100 ML IVPB SCH (08:05)
--- NOTE | 2018-02-27 09:04 | Urology Progress Note ---
Date of Encounter: 02/27/18 Time of Encounter: 09:02 - Assessment and Plan (1) Hydronephrosis, right Current Visit: Yes Status: Acute Assessment and plan: Patient is a 27-year-old female who presents 6 days postoperatively from right ureteroscopy, laser lithotripsy, basket stone extraction, and stent placement. Patient was admitted for right flank pain, intractable nausea, vomiting, and hydronephrosis after stent removal. Patient's vital signs are stable and afebrile. Labs are reassuring. Patient appears to be improving clinically as flank pain is resolved. Patient is aware she will undergo repeat renal ultrasound in 3-4 weeks to reevaluate for hydronephrosis. Patient may be considered for discharge once nausea and vomiting are resolved and patient is able to successfully advance her diet. Progress Note Subjective: no new complaints, feels better, nausea Narrative: POD #6. Patient seen and examined lying in bed on left lateral side in no apparent distress. Patient reports promethazine is alleviating nausea. Patient states she is tolerating full liquids. Patient states flank pain is resolved. Patient states she just tried promethazine suppositories which seem to be helping. Patient denies fever, chills, gross hematuria. Objective Initial Vital Signs Temp Pulse Resp BP Pulse Ox 98.7 F 65 16 122/67 98 02/26/18 03:10 02/26/18 03:10 02/26/18 03:10 02/26/18 03:10 02/26/18 03:10 - General physical appearance Present: well developed, well nourished, no distress, no pain - Respiratory Present: normal expansion, normal respiratory effort - Abdomen Present: soft, non tender - Integumentary Present: no rash, no abnormal pigmentation - Psychiatric Present: oriented to time, oriented to person, oriented to place, speech is normal, memory intact - Labs 02/26/18 06:56 02/26/18 06:56 Consult Discharge Plan - Plan Referrals: Luz Pan GLASS DECORATOR [Advanced Practice Nurse] - 03/06/18 1:40 pm
[2018-02-27] MEDS: Ondansetron 4 MG/2 ML VIAL IVP PRN ×2 (09:55→18:19)
--- NOTE | 2018-02-27 15:57 | Internal Med Progress Note ---
Hospitalist Progress Note - Encounter Date of Encounter: 02/27/18 Time of Encounter: 10:15 - Subjective Interval History: cont nausea and low back discomfort. no fevers, chills, emesis. no abd pain, supra pubic tenderness or dysuria. Noting constipation with small hard bm earlier this morning and requesting addl laxative. no brbpr, mucus or diarrhea. - Exam Vitals: Temp Pulse Resp BP Pulse Ox 98.9 F 74 15 155/84 99 02/27/18 11:31 02/27/18 11:02/27/18 11:02/27/18 11:02/27/18 11:31 Exam: General: awake, alert, appears stated age HEENT:EOM intact, pupils equal, round, moist mucus membranes, Cardiovascular:regular rate and rhythm, normal S1 & S2, no rubs, murmurs or gallops. , no lower extremity edema Lungs:Normal breath sounds, no wheezes, or crackles. Normal respiratory effort on ra Abdomen:Soft, non-tender, non-distended, no rigidity, + bowel sounds MSK: no cva tenderness Neurological: AAOx3 Skin:Normal color, no rash, no pallor, no jaundice - Assessment and Plan (1) Right ureteral stone Current Visit: Yes Status: Suspected Assessment and Plan: Patient with recent is right ureteral stone with associated hydronephrosis. She is status post ureteroscopically, laser lithotripsy, basket stone extraction , and stent placement. Patient removed the stent at home on 02/25. Patient reports normal long after she began having right flank pain with nausea and vomiting that progressively became worse until she presented to outlying emergency department. CT shows residual hydronephrosis Urology is following- no need for repeat stent at this time --patient is aware she will undergo repeat renal ultrasound in 3-4 weeks to reevaluate for hydronephrosis. Patient may be considered for discharge once nausea and vomiting are resolved and patient is able to successfully advance her diet. Okay to continue ketorolac, control of nausea. Continue IV fluids, pain management, antiemetics. (2) Right flank pain Current Visit: Yes Status: Resolved Assessment and Plan: Now resolved Plan as above. (3) Hematuria Current Visit: Yes Status: Acute Assessment and Plan: Patient with large amount of blood in UA that was collected at outside facility. Trace of leukocyte esterase, 5-15 red cells. This is normal in the setting of stent placement and ureteral stones. -empiric rocephin--will d/w urology if requires cont abx (4) DVT prophylaxis Current Visit: Yes Status: Acute Assessment and Plan: Heparin subcutaneous. (5) Constipation Current Visit: Yes Status: Acute Assessment and Plan: bowel regimen implemented cont to monitor for improvement - Time Spent with Patient Total time spent is greater than 50% in coordination of care (as documented) at patient's floor/unit and/or counseling patient: 25 - 35 minutes Plan of Care Discussed with: patient Internal Medicine: Result - Labs CBC & Chem 7: 02/26/18 06:56 02/26/18 06:56 Consult Discharge Plan - Plan Referrals: Luz Pan, TRACTOR MECHANIC [Advanced Practice Nurse] - 03/06/18 1:40 pm (3) Hematuria Qualifiers: Hematuria type: asymptomatic microscopic Qualified Code(s): R31.21 - Asymptomatic microscopic hematuria
[2018-02-28] MEDS: Ondansetron 4 MG/2 ML VIAL IVP PRN ×2 (03:01→12:42)
[2018-02-28] MEDS: *HR* Heparin 5,000 UNIT/ML VIAL SQ SCH ×2 (05:00→16:19)
[2018-02-28 05:53] LABS: Basophils % 0.2 %; Eosinophils % 0.2 %; Hematocrit 39.9 % (35.3-44.9); Immature Granulocytes % 0.5 % (0-4); Lymphocytes # 1.7 K/mcL (0.6-4.6); Lymphocytes % 13.6 %; Mean Corpuscular HGB Conc 34.1 g/dL (31.6-35.5); Mean Corpuscular Hemoglobin 30.4 pg (28.0-33.3); Mean Corpuscular Volume 89.1 fL (83.0-100.0); Mean Platelet Volume 12.6 fL (9.4-12.4); Monocytes # 0.9 K/mcL (0.0-1.3); Monocytes % 7.7 %; Neutrophils # 9.5 K/mcL (1.6-8.9); Platelet Count 289 K/mcL (140-400); Red Blood Count 4.48 M/mcL (3.82-4.97); Segmented Neutrophils % 77.8 %
[2018-02-28 05:55] LABS: Hemoglobin 13.6 g/dL (11.5-15.4)
[2018-02-28 06:57] LABS: Blood Urea Nitrogen 12 mg/dL (6-20); Calcium 9.2 mg/dL (8.6-10.3); Carbon Dioxide 19 mEq/L (23-29); Chloride 102 mEq/L (98-107); Glucose 92 mg/dL (70-105); Osmolality,Calculated 281 (280-300); Potassium 3.4 mEq/L (3.5-5.1); Sodium 136 mEq/L (136-145)
[2018-02-28] MEDS ORDERED: Famotidine 20 MG TABLET PO PRN (07:00)
[2018-02-28 07:41] LABS: BUN/Creatinine Ratio 20 (6-26); eGFR For Non-African Americans > 60 (> 60)
[2018-02-28] MEDS: cefTRIAXone 1,000 MG in 0.9 % Sodium Chloride Mini Bag 100 ML IVPB SCH (09:48)
--- NOTE | 2018-02-28 10:10 | Urology Progress Note ---
Date of Encounter: 02/28/18 Time of Encounter: 09:00 - Assessment and Plan (1) Hydronephrosis, right Current Visit: Yes Status: Acute Assessment and plan: Patient is a 27-year-old female who presents 7 days postoperatively from right ureteroscopy, laser lithotripsy, basket stone extraction, and stent placement. Patient was admitted for right flank pain, intractable nausea, vomiting, and hydronephrosis after stent removal. Patient's vital signs are stable and afebrile. Labs are reassuring. Patient appears to be improving clinically as flank pain and nausea are resolving Patient is aware she will undergo repeat renal ultrasound in 3-4 weeks to reevaluate for hydronephrosis. Patient may be considered for discharge. Urology will sign off and plan to see Ms. Wolff as an outpatient. Progress Note Subjective: no new complaints, feels better Narrative: Patient seen and examined sitting upright in bed in no apparent distress. Patient reports nausea is much improved. Patient states flank pain is resolved. Patient denies emesis in the last 12 hours. Patient has been able to slowly advance her diet. Objective Initial Vital Signs Temp Pulse Resp BP Pulse Ox 98.7 F 65 16 122/67 98 02/26/18 03:10 02/26/18 03:10 02/26/18 03:10 02/26/18 03:10 02/26/18 03:10 - General physical appearance Present: well developed, no distress, no pain - Respiratory Present: normal expansion, normal respiratory effort - Abdomen Present: soft, non tender - Integumentary Present: no rash, no abnormal pigmentation - Musculoskeletal Present: normal posture - Psychiatric Present: oriented to time, oriented to person, oriented to place, speech is normal, memory intact - Labs 02/28/18 04:45 02/28/18 04:45 Diabetes panel 02/28/18 Range/Units 04:45 Sodium 136 (136-145) mEq/L Potassium 3.4 L (3.5-5.1) mEq/L Chloride 102 (98-107) mEq/L Carbon Dioxide 19 L (23-29) mEq/L BUN 12 (6-20) mg/dL Creatinine 0.59 L (0.60-1.20) mg/dL Glucose 92 (70-105) mg/dL Calcium 9.2 (8.6-10.3) mg/dL Calcium panel 02/28/18 Range/Units 04:45 Calcium 9.2 (8.6-10.3) mg/dL Pituitary panel 02/28/18 Range/Units 04:45 Sodium 136 (136-145) mEq/L Potassium 3.4 L (3.5-5.1) mEq/L Chloride 102 (98-107) mEq/L Carbon Dioxide 19 L (23-29) mEq/L BUN 12 (6-20) mg/dL Creatinine 0.59 L (0.60-1.20) mg/dL Glucose 92 (70-105) mg/dL Calcium 9.2 (8.6-10.3) mg/dL Adrenal panel 02/28/18 Range/Units 04:45 Sodium 136 (136-145) mEq/L Potassium 3.4 L (3.5-5.1) mEq/L Chloride 102 (98-107) mEq/L Carbon Dioxide 19 L (23-29) mEq/L BUN 12 (6-20) mg/dL Creatinine 0.59 L (0.60-1.20) mg/dL Glucose 92 (70-105) mg/dL Calcium 9.2 (8.6-10.3) mg/dL Consult Discharge Plan - Plan Referrals: Luz Pan, ANJALI [Advanced Practice Nurse] - 03/06/18 1:40 pm
--- NOTE | 2018-02-28 15:51 | Discharge Summary ---
- NOTES TO OUTPATIENT PROVIDER Notes to Outpatient Provider: she requires follow up with Urology in 3 weeks for repeat real US to assess mild hydronephrosis, she does NOT require abx on discharge as per d/w URology. She reported constipation and had bm with enema. KUB showed normal bowel gas pattern and no heavy stool burden. If continues to be an issue will require further outpt w/u with PCP Date of Encounter: 02/28/18 Time of Encounter: 10:00 - Discharge Diagnosis (1) Right ureteral stone Priority: Secondary Status: Suspected Assessment and Plan: Patient with recent is right ureteral stone with associated hydronephrosis. She is status post ureteroscopically, laser lithotripsy, basket stone extraction , and stent placement. Patient removed the stent at home on 02/25. Patient reports normal long after she began having right flank pain with nausea and vomiting that progressively became worse until she presented to outlying emergency department. CT showed residual hydronephrosis Urology is following- no need for repeat stent at this time --patient is aware she will undergo repeat renal ultrasound in 3-4 weeks to reevaluate for hydronephrosis. Patient may be considered for discharge once nausea and vomiting are resolved and patient is able to successfully advance her diet nausea improved, no emesis, tolerating intake, limited by poor appetite pcp and urology follow up (2) Right flank pain Priority: Primary Status: Resolved Assessment and Plan: Now resolved Plan as above. Urology fu in 3 weeks and repeat renal US at that time (3) Hematuria Priority: Primary Status: Acute Assessment and Plan: Patient with large amount of blood in UA that was collected at outside facility. Trace of leukocyte esterase, 5-15 red cells. Mild leukocytosis down trended This is normal in the setting of stent placement and ureteral stones as per d/w Urology -empiric rocephin--d/w urology and not required, discontinued and no need for abx on dc Qualifiers: Hematuria type: asymptomatic microscopic Qualified Code(s): R31.21 - Asymptomatic microscopic hematuria (4) DVT prophylaxis Priority: Secondary Status: Acute Assessment and Plan: Heparin subcutaneous. (5) Constipation Priority: Secondary Status: Acute Assessment and Plan: bowel regimen implemented had bm 02/27 after enema KUB 02/28 with normal bowel gas pattern and no heavy stool burden noted will dc with bowel regimen and outpt fu Qualifiers: Constipation type: unspecified constipation type Qualified Code(s): K59.00 - Constipation, unspecified Hospital course: Ms. Wolff is a 27 year old female who presented with right flank pain and hematuria after pulling out her recently placed ureteral stent. Urology followed her here. CT scan showed mild residual hydronephrosis. Urology monitored closely, no need for re stenting, will fu outpt for renal US in 3 weeks, no abx required as ua and mild leukocytosis findings c/w recent stone extraction/stent. She had no fevers. She reported constipation prior to admissionthat resolved this admission with laxative and enema. Full details of course are described in assessment plan section of note. she was dc to home in stable condition with pcp and urology f/u. - Time Spent with Patient Total time spent providing and/or coordinating discharge services: - Discharge Medications Prescriptions: Promethazine [Phenergan] 25 mg PO Q6HR PRN #25 tablet PRN Reason: Nausea And Vomiting Docusate [Colace] 100 mg PO BID 5 Days #10 capsule Home Medications: l-Norgest/E.estradiol-E.estrad [Seasonique 0.15-0.03-0.01 Tab] 1 tab PO DAILY [History] Docusate [Colace] 100 mg PO BID 5 Days #10 capsule 02/28/18 [Rx] Promethazine [Phenergan] 25 mg PO Q6HR PRN #25 tablet 02/28/18 [Rx] Allergies/Adverse Reactions: 3 Allergy/AdvReac Type Severity Reaction Status Date / Time promethazine [From Phenergan] AdvReac Mild Muscle Pain Verified 02/26/18 10:19 Date of admission: 02/26/18 02:41 Primary care physician: PCP NONE Consults: 02/26/18 03:12 Consult to Urology [CONS] Routine Consulting Provider: Urology [facility] Reason for Consult: Patient readmitted for continuous exquisite right flank pain after removing ureteral stent placed a few days ago. Call Completed: No Discharging clinician: Teri Flores - Constitutional Vitals: Temp Pulse Resp BP Pulse Ox 99.2 F 79 15 149/86 100 02/28/18 12:13 02/28/18 12:13 02/28/18 12:13 02/28/18 12:13 02/28/18 12:13 Exam: General: awake, alert, appears stated age, NOT toxic appearing HEENT:EOM intact, pupils equal, round, moist mucus membranes, Cardiovascular:regular rate and rhythm, normal S1 & S2, no rubs, murmurs or gallops. , no lower extremity edema Lungs:Normal breath sounds, no wheezes, or crackles. Normal respiratory effort on ra Abdomen:Soft, non-tender, non-distended, no rigidity, + bowel sounds MSK: no cva tenderness Neurological: AAOx3 Skin:Normal color, no rash, no pallor, no jaundice - Patient Status Disposition: Home, Self-Care Condition: Good Overall status at discharge: patient is progressing back to baseline - Discharge Instructions Follow Up With: Luz Pan CNP [Advanced Practice Nurse] - 03/06/18 1:40 pm Johnathan Brice MD [Partnered Physician] - Additional Instructions: Dr Johnathan Brice of Urology in 3 weeks - Diet and Activity Activity: increase activity as tolerated Diet: advance to your usual diet
[2018-02-28 15:53] VITALS: BP 146/86
== END 2018-02-28 17:25 | disposition home or self-care (01) ==
LOC: 3BNU → SUATTDRO 02-26 02:41
PROVIDERS: ADMIT Internal Medicine; ATTEND Internal Medicine